=== PATIENT | female | born 1965 | race Caucasian/White ===

== ENCOUNTER 2023-06-16 14:43 | Emergency (ER) | payer MEDICAID, SELFPAY ==
[2023-06-16 14:44] VITALS: BP 175/66; PULSE 101; RESP 16; TEMP 36.8; O2SAT 96; BMI 27.4
[2023-06-16] MEDS: traMADol 50 MG Tablet PO (16:41)
--- NOTE | 2023-06-16 16:41 | EX.ED.GENINJ ---
HPI History of Present Illness Chief Complaint: Fall Narrative Narrative: 58-year-old female presenting with left shoulder pain and left rib pain. Patient states she was washing her dog in the tub and her arm was bracing herself and she slipped and felt a pop. She hit her ribs on the side of the tub and she states that her left shoulder hurts. She is not sure where the pop came from. She is having trouble moving her left shoulder secondary to pain over the deltoid and the trapezius. Denies hitting her head or injuring her neck. Patient states he is allergic to NSAIDs and has not tried Tylenol. She states that she is chronically on gabapentin which is not helping either. She has not tried ice or heat. [facility] Medical History Fibroid tumor Ovarian cyst Allergy/AdvReac Type Severity Reaction Status Date / Time adhesive Allergy Mild Hives Verified 06/16/23 14:47 amoxicillin Allergy Mild Hives Verified 06/16/23 14:47 coconut Allergy Mild Hives Verified 06/16/23 14:47 NSAIDS (Non-Steroidal Allergy Mild Hives Verified 06/16/23 14:47 Anti-Inflamma pineapple Allergy Mild Hives Verified 06/16/23 14:47 Surgical History H/O kyphoplasty History of appendectomy History of tonsillectomy Hx of cholecystectomy S/P cervical disc replacement Total knee replacement status Social History Smoking Status: Current every day smoker tobacco type: cigarettes ROS ROS ED Constitutional Constitutional ED: Denies chills or fever(s) Eyes Eyes: Denies change in vision ENT ENT ED: Denies rhinorrhea Cardiovascular Cardiovascular: Denies chest pain or palpitations Respiratory/Chest Respiratory/Chest: Denies cough or dyspnea Gastrointestinal Gastrointestinal: Denies abdominal pain or constipation Genitourinary Genitourinary ED: Denies dysuria or hematuria Musculoskeletal Musculoskeletal: Reports other Details: Pain in left shoulder and left rib Integumentary Denies abscess or Abrasions Neurologic Neurologic: Denies headache(s) Psychiatric Psychiatric: Denies anxiety or depression EXAM Physical Exam Const Vital Signs: 06/16/23 14:44 06/16/23 16:13 Temperature 98.2 F Temperature Source Temporal Pulse Rate 101 H Respiratory Rate 16 Respiratory Effort Normal Non-Labored Respiratory Depth Normal Respiratory Pattern Normal Blood Pressure 175/66 H Blood Pressure Mean 102 Pulse Ox 96 Oxygen Delivery Method Room Air Positive well nourished General Appearance ED: NAD HEENT atraumatic Eyes PERRL and EOMs intact bilaterally Chest Wall inspection of chest normal Chest Narrative: To palpation over left ribs laterally in the mid axillary line. No crepitance, deformity. Equal symmetric breath sounds chest wall rise. Resp normal respiratory effort and clear to auscultation bilaterally Auscultation: Negative for rales, rhonchi or wheezes Cardio regular rhythm Rate: regular rate Extremity Extremity Narrative: There is palpation of her left shoulder over the deltoid. There is also some tenderness into the left trapezius. The clavicle is nontender. Patient also experiences tenderness in the proximal bicep region. She is able to abduct and abduct the arm with use of her right arm not under the strength of her left arm.. No bony deformities. No obvious muscle deformities. Neuro oriented x3 and CN's II-XII intact bilaterally Sensorium / Orientation: alert Motor Exam: strength 5/5 throughout Psych mental status grossly normal Skin no rashes or lesions noted and no wounds MDM MDM MDM Narrative Medical decision making narrative: Presenting with left shoulder pain and left rib pain. Her ribs are not very tender, however her left shoulder she is very tender on palpation and has limited range of motion with suspicion for possible rotator cuff tear given her exam although this is limited because the patient does not want to precipitate in testing. She states it is too tender. She is medicated with tramadol which she states tolerated in the past. X-rays of the left shoulder and left ribs will be obtained. Left shoulder my interpretation is no acute fracture or subluxation. Radiology interprets this as calcific tendinitis. X-rays of the left ribs show 1/7 rib fracture on my interpretation the radiologist interprets this and agrees. No pneumothorax or infiltrate. Patient was given tramadol in the ED. I will give her prescription for [place] as she has tolerated this in the past. Follow-up with orthopedics and primary care. Impression: 1. Mechanical fall 2. Rotator cuff tear left shoulder 3. Left seventh rib fracture Radiography Diagnostic Testing: Clinical Impression(s) from Imaging Studies Ribs w/Chest X-Ray 06/16/23 16:55 IMPRESSION: RIBS: Fracture involving the anterior arch of the left seventh rib. CHEST: No acute cardiopulmonary disease. Electronically Signed: La Kumar MD at 17:22 EST , Shoulder X-Ray 06/16/23 16:55 IMPRESSION: Calcific tendinitis. No acute fracture or subluxation. Electronically Signed: La Kumar MD at 17:20 EST , Discharge Plan Triage Chief Complaint: Fall ED Provider: Matthew Linder Dx/Rx/DC Orders Primary Care Provider: Fang Matos Referrals: Fang Matos, [facility] [Primary Care Provider] -
--- NOTE | 2023-06-16 16:55 | RAD_ITS ---
STUDY: X-RAY - UNILATERAL RIBS ( LEFT ) WITH CHEST REASON FOR EXAM: Female, 58 years old. pain TECHNIQUE - RIBS: 4 view(s) of the ribs. TECHNIQUE - CHEST: Single PA view of the chest. COMPARISON: None. FINDINGS - RIBS: There is a fracture involving the anterior arch of the left seventh rib. FINDINGS - CHEST: The lungs are clear and expanded. There is no demonstrated pleural abnormality. Normal size heart. Normal mediastinum and elver. Normal visualized pulmonary arteries. There is mild atherosclerotic calcification of the aortic arch with tortuosity. Postoperative changes of the thoracic spine with anterior fusion of the lower cervical spine and right-sided posterior fusion throughout the mid thoracic spine. Normal visualized ribs, clavicles, and shoulders. There is no demonstrated abnormality of the visualized soft tissue structures of the upper abdomen. RAD/Ribs Uni Min 3V w/PA Chest IMPRESSION: RIBS: Fracture involving the anterior arch of the left seventh rib. CHEST: No acute cardiopulmonary disease. Electronically Signed: La Kumar MD at 17:22 [facility] ,
--- NOTE | 2023-06-16 16:55 | RAD_ITS ---
STUDY: X-RAY - LEFT SHOULDER REASON FOR EXAM: Female, 58 years old. shoulder pain TECHNIQUE: 3 view(s) of the shoulder. COMPARISON: None. FINDINGS: Normal glenohumeral articulation. Normal acromioclavicular joint. Normal acromion. Normal humeral head and visualized proximal humerus. There is periarticular soft tissue calcification consistent with a calcific tendinitis, measuring approximately 1.8 cm in maximum dimension. Normal visualized pulmonary apex. RAD/Shoulder min 2 Views IMPRESSION: Calcific tendinitis. No acute fracture or subluxation. Electronically Signed: La Kumar MD at 17:20 EST ,
== END 2023-06-16 18:49 | disposition home or self-care (01) ==
PROVIDERS: Emergency Provider Student in an Organized Health Care Education/Training Program; PCP Nurse Practitioner Family; Visit Provider Student in an Organized Health Care Education/Training Program
DX: S46.012A Strain of muscle(s) and tendon(s) of the rotator cuff of left shoulder, initial encounter (principal); S22.32XA Fracture of one rib, left side, initial encounter for closed fracture; F17.210 Nicotine dependence, cigarettes, uncomplicated; W19.XXXA Unspecified fall, initial encounter
CPT/HCPCS: 71101; 73030; 99282

== ENCOUNTER → 2023-07-04 | Outpatient (CLI) | payer MEDICAID, SELFPAY ==
--- OUTSIDE RECORDS SUMMARY | 2023-07-04 15:06 | XMS RPT_ITS | CCD ---
Author Name Unknown Address [address] [facility] [address] [place] [address] Organization [facility] Care Team Providers Care Ice Cream Dipper Name Role Phone Unavailable Primary Care Provider Unavailjosiah Barger [employer].Fang HU Primary Care Provider FANG BARGER Attending Unavailable FANG BARGER Primary Care Unavailable FANG BARGER Referring Unavailable FANG BARGER Attending Unavailable Allergies Allergy Classification Reported Allergen(s) Allergy Type Date of Onset Reaction(s) Facility (5 sources) Adhesive agent; Translations: [ADHESIVE] Drug Allergy 0 Other: See [facility] (5 sources) Amoxicillin; Translations: [AMOXICILLIN] Drug Allergy 0 [facility] (5 sources) celecoxib; Translations: [CELECOXIB] Drug Allergy 0 [facility] (5 sources) Ibuprofen; Translations: [IBUPROFEN] Drug Allergy 0 [facility] (5 sources) meloxicam; Translations: [MELOXICAM] Drug Allergy 0 [facility] (5 sources) rofecoxib; Translations: [ROFECOXIB] Drug Allergy 0 [facility] (5 sources) Sulfonamides (Antibiotic); Translations: [SULFA (SULFONAMIDE ANTIBIOTICS)] Drug Allergy 0 [facility] Medications Current Medications Medication Drug Class(es) Dates Sig (Normalized) Sig (Original) cephalexin 500 mg oral capsule (1 source) Cephalosporin Antibacterial Start: 03-02-2023 End: 03-07-2023 take 1 capsule by mouth three times daily cephALEXin (KEFLEX) 500 mg capsule Take 1 capsule by mouth three times daily for 5 days. 15 capsule 0 03/02/2023 03/07/2023 Active Completed/Discontinued Medications Medication Drug Class(es) Dates Sig (Normalized) Sig (Original) clopidogrel 75 mg oral tablet (5 sources) P2Y12 Platelet Inhibitor Start: 02-12-2023 End: 06-06-2023 take 1 tablet by mouth once daily clopidogrel (PLAVIX) 75 mg tablet Indications: PAD (peripheral artery disease) (HCC) Take 1 tablet by mouth once daily. 90 tablet 1 06/06/2023 Active Problems Problem Classification Problem Date Documented Da te Episodic/Chronic Disorders of lipid metabolism (2 sources) Mixed hyperlipidemia; Translations: [Mixed hyperlipidemia] Onset: 06-06-2023 06-06-2023 Chronic Essential hypertension (2 sources) Essential hypertension; Translations: [Essential (primary) hypertension] Onset: 06-06-2023 06-06-2023 Chronic Headache; including migraine (2 sources) Migraine without aura, not refractory ; Translations: [Migraine without aura, not intractable, without status migrainosus] Onset: 06-06-2023 06-06-2023 Chronic Miscellaneous mental health disorders (2 sources) Chronic insomnia; Translations: [Psychophysiologic insomnia] Onset: 06-06-2023 06-06-2023 Chronic Open wounds of extremities (1 source) Puncture wound of right foot; Translations: [Puncture wound without foreign body, right foot, initial encounter] 03-02-2023 Episodic Other fractures (1 source) Fracture of one rib, right side, initial encounter for closed fracture; Translations: [Closed fracture of one rib of right side, initial encounter] Onset: 06-23-2023 Episodic Other nervous system disorders (1 source) Chronic pain syndrome; Translations: [Chronic pain syndrome] 06-06-2023 Chronic Other nervous system disorders (1 source) Chronic pain syndrome; Translations: [Chronic pain syndrome] Onset: 06-23-2023 Chronic Other non-traumatic joint disorders (1 source) Pain in left shoulder; Translations: [Acute pain of left shoulder] Onset: 06-23-2023 Episodic Other screening for suspected conditions (not mental disorders or infectious disease) (3 sources) Patient encounter status; Translations: [Encounter for screening for diabetes mellitus] Onset: 06-06-2023 06-06-2023 Episodic Peripheral and visceral atherosclerosis (2 sources) Peripheral vascular disease, unspecified; Translations: [Peripheral vascular disease, unspecified] Onset: 06-06-2023 06-06-2023 Chronic Thyroid disorders (2 sources) Acquired hypothyroidism; Translations: [Hypothyroidism, unspecified] Onset: 06-06-2023 06-06-2023 Chronic Viral infection (1 source) Viral disease; Translations: [Viral infection, unspecified] 03-02-2023 Episodic Results Test Name Value Interpretation Reference Range Facil ity Vital Signs Date Time Vital Sign Value Performing Clinician [place] mazariegos 06-06-2023 16:03-0500 Body weight 68.04 kg Fang Barger [employer]ICE [employer] Work Phone: [facility] 06-06-2023 16:03-0500 Diastolic blood pressure 75 mm[Hg] Fang Barger [employer].APPRENTICE PLUMBER Work Phone: [facility] 06-06-2023 16:03-0500 Heart rate 80 /min Fang Barger [employer].APPRENTICE [employer]UMBER Work Phone: [facility] 06-06-2023 16:03-0500 Respiratory rate 14 /min Fang Barger [employer].APPRENTICE [employer]UMBER Work Phone: [facility] 06-06-2023 16:03-0500 Systolic blood pressure 116 mm[Hg] Fang Barger [employer].APPRENTICE PLUMBER Work Phone: [facility] 03-02-2023 14:05-0400 Body temperature 99.19 [degF] Raffi Huynh [employer].APPRENTICE PLUMBER Work Phone: [facility] 03-02-2023 14:05-0400 Body weight 67.86 kg Raffi Huynh [employer].APPRENTICE PLUMBER Work Phone: [facility] 03-02-2023 14:05-0400 Diastolic blood pressure 60 mm[Hg] Raffi Huynh [employer].APPRENTICE PLUMBER Work Phone: [facility] 03-02-2023 14:05-0400 Heart rate 82 /min Raffi Huynh [employer].APPRENTICE PLUMBER Work Phone: [facility] 03-02-2023 14:05-0400 Respiratory rate 21 /min Raffi Huynh [employer].APPRENTICE PLUMBER Work Phone: [facility] 03-02-2023 14:05-0400 SaO2% (BldA) [Mass fraction] 96 % Raffi Huynh [employer].APPRENTICE PLUMBER Work Phone: [facility] 03-02-2023 14:05-0400 Systolic blood pressure 124 mm[Hg] Raffi Huynh [employer].APPRENTICE PLUMBER Work Phone: [facility] Encounters Encounter Date Encounter Type Care Provider Facility Start: 06-29-2023 ambulatory Fang pollard [employer].APPRENTICE PLUMBER Work Phone: Internal Medicine [facility] Start: 06-23-2023 End: 06-24-2023 ambulatory FANG BARGER Facility:[facility] Start: 06-07-2023 Telephone encounter Fang keenan [employer].APPRENTICE [employer]BER Work Phone: [facility] Start: 06-06-2023 End: 06-07-2023 ambulatory FANG BARGER Facility:[facility] Start: 06-06-2023 End: 06-06-2023 Patient encounter procedure Fang Barger [employer].APPRENTICE [employer]UMBER Work Phone: [facility] Procedures Date Procedure Procedure Detail Performing Clinician Start: 06-06-2023 Lipid 1996 panel - S leena or Plasma Fang Barger [employer].APPRENTICE [employer]UMBER Work Phone: Plan of Treatment Date Care Activity Detail Author Start: 03-02-2033 Urine microalbumin profile [facility] Start: 06-06-2028 Lipid panel Lipid Screening [facility] Start: 06-06-2026 Diabetes Screening Diabetes Screenin g [facility] Start: 06-06-2024 Covid-19 Vaccine (#1) Covid-19 Vacci ne (#1) [facility] Immunizations Immunization Date Immunization Notes Care Provider Fa rosanne 03-02-2023 tetanus toxoid, redu mesha diphtheria toxoid, and acellular pertussis vaccine, adsorbed Raffi Huynh [employer].APPRENTICE [employer]UMBER Work Phone: [facility] Payers Date Payer Category Payer Medicaid [employer] [id number] 2023-Present [phone] [address] [place] [address] Medicaid [id number] 2023 Medicaid [id number] Social History Date Type Detail [facility] unknown [facility] Work Phone: Start: 1965 Sex Assigned At Not on file [facility] Start: 03-02-2023 End: 06-05-2023 Gender identity Not on file [facility] Start: 03-02-2023 [facility] History of tobacco use Cigarette Smoker [facility] History of tobacco use Passive smoker [facility] Start: 03-02-2023 Tobacco use and exposure Smokeless tobacco non-user [facility] Start: 03-02-2023 End: 06-05-2023 History of Social function [facility] National Score (1-10 0), lower number is lower risk 60 [facility] Has the [employer], or [employer] threatened to shut off services in your home in past 12Mo No [facility] Are you now , , , , never or living with a partner? [facility] How often do you hav e 6 or more drinks on 1 occasion? Never [facility] The food that (I/we) bought just didn't last, and (I/we) didn't have money to get more. DK or Refused [facility] Clinical Notes 01-03-2023 to 06-29-2023 Fang Barger, [employer].APPRENTICE PLUMBER - 06/06/2023 4:14 PM Raffi Hardin APRN.APPRENTICE PLUMBER - 03/02/2023 2:11 PM EDTTelephone Encounter - Kenneth Martinez PA-C - 01/03/2023 6:07 PM EDT Note Date & Type Note Facility 06-29-2023 Note Patient Outreach (IN [facility]) CALLI ABBOTT ([id number]) 1965 F Date Time Provider Department 06/29/23 FANG BARGER During your visit today, we recorded the following information about you: Allergies As of Date: 06/29/2023 Noted Allergy Reaction ADHESIVE 05/14/2010 14 - Other: See Comments Comments: BLISTERS AMOXICILLIN 05/14/2010 4 - Hives CELECOXIB 05/14/2010 4 - Hives IBUPROFEN 05/14/2010 4 - Hives MELOXICAM 05/14/2010 4 - Hives ROFECOXIB 05/14/2010 4 - Hives SULFA (SULFONAMIDE ANTIBIOTICS) 05/14/2010 4 - Hives Date Reviewed: 06/23/2023 Reviewed by: Renata Stevenson Cma - Fully Assessed Visit Diagnosis:Encounter for screening mammogram for breast cancer [Z12.31] Order(s):[facility] SCREEN[facility] [[id number]] Order #: [id number] FUTURE Prescriptions as of 07/04/2023 - propranolol (INDERAL) 20 mg tablet Take 1 tablet by mouth three times a day. - traZODone (DESYREL) 100 mg tablet Take 1 tablet by mouth daily at bedtime. - SUMAtriptan (IMITREX) 25 mg tablet Take 1 tablet (25 mg) by mouth as needed for migraine headache (see administration instructions). - losartan (COZAAR) 50 mg tablet Take 1 tablet by mouth once daily. - levothyroxine (SYNTHROID) 125 mcg tablet Take 1 tablet by mouth once daily. - hydrOXYzine HCl (ATARAX) 25 mg tablet Take 1 tablet by mouth three times a day as needed. - gabapentin (NEURONTIN) 800 mg tablet Take 1 tablet by mouth three times a day for 90 days. - ezetimibe (ZETIA) 10 mg tablet Take 1 tablet by mouth once daily. - DULoxetine (CYMBALTA) 30 mg capsule Take 1 capsule by mouth two times a day. - clopidogrel (PLAVIX) 75 mg tablet Take 1 tablet by mouth once daily. Problem List As Of Date: 06/29/2023 (None) Encounter Status:Closed by EPIC, PRODUSER on 07/04/23 [facility] 06-23-2023 Note HNO ID: [id number] Author: Fang Barger APRN.APPRENTICE PLUMBER Service: ? Author Type: Nurse Practitioner Type: Progress Notes Filed: 06/23/2023 1:17 PM Note Text: Chief Complaint Patient presents with: ER F/U HPI Calli Abbott is a 58 year old female who presents here today for Above Complaints.. Patient presents for ER follow up. Patient was seen in ER 06/16 following a fall where she fractured her rib and injured her shoulder. Patient was prescribed norco at that time and given 12 tabs. Past medical history, appointments, medications, allergies reviewed. Previous Medical History No past medical history on file. Previous Surgical History No past surgical history on file. Family History No family history on file. Patient Allergies ALLERGIES Allergen Reactions Adhesive Other: See Comments BLISTERS Amoxicillin Hives Celecoxib Hives Ibuprofen Hives Meloxicam Hives Rofecoxib Hives Sulfa (Sulfonamide * Hives Current Medications Current Outpatient Medications on File Prior to Visit Medication Sig propranolol (INDERAL) 20 mg tablet Take 1 tablet by mouth three times a day. traZODone (DESYREL) 100 mg tablet Take 1 tablet by mouth daily at bedtime. SUMAtriptan (IMITREX) 25 mg tablet Take 1 tablet (25 mg) by mouth as needed for migraine headache (see administration instructions). losartan (COZAAR) 50 mg tablet Take 1 tablet by mouth once daily. levothyroxine (SYNTHROID) 125 mcg tablet Take 1 tablet by mouth once daily. hydrOXYzine HCl (ATARAX) 25 mg tablet Take 1 tablet by mouth three times a day as needed. gabapentin (NEURONTIN) 800 mg tablet Take 1 tablet by mouth three times a day for 90 days. ezetimibe (ZETIA) 10 mg tablet Take 1 tablet by mouth once daily. DULoxetine (CYMBALTA) 30 mg capsule Take 1 capsule by mouth two times a day. clopidogrel (PLAVIX) 75 mg tablet Take 1 tablet by mouth once daily. No current facility-administered medications on file prior to visit. Social History Social History Tobacco Use Smoking status: Every Day Types: Cigarettes Passive exposure: Current Smokeless tobacco: Never Review of Symptoms REVIEW OF SYSTEMS SEE HPI EXAM: BP 150/80 Pulse 78 Resp 14 Wt 68.5 kg (151 lb) General Appearance: Well appearing, alert, in no acute distress, well-hydrated, well nourished.. Lungs: Lungs clear to auscultation. No wheezing, rhonchi, rales.. Heart: RRR without murmur, gallop, or rubs. No ectopy. Extremities: Positive findings: joint location: on left shoulder painful movement, loss of ROM, stiffness, and injury. Health Maintenance List Hepatitis B Vaccine(1 of 3 - 3-dose series) Never done Pneumococcal Vaccine(1 of 2 - PCV) Never done Hepatitis C Screening Never done HIV Screening Never done Pap Testing Never done HPV Testing Never done Mammogram Screening Never done Colorectal Cancer Screening Never done Shingrix Vaccine(1 of 2) Never done Depression Assessment Never done Influenza Vaccine(1) Never done Covid-19 Vaccine(1) due on 06/06/2024 Diabetes Screening due on 06/06/2026 Lipid Screening due on 06/06/2028 DTaP,Tdap,Td Vaccine(2 - Td or Tdap) due on 03/02/2033 ASSESSMENT/PLAN: 1. Closed fracture of one rib of right side, initial encounter - ICD9: 807.01, ICD10: S22.31XA (primary diagnosis) - HYDROCODONE 5 MG-ACETAMINOPHEN 325 MG TABLET 2. Chronic pain syndrome - ICD9: 338.4, ICD10: G89.4 - CONSULT TO PAIN MGT 3. Acute pain of left shoulder - ICD9: 719.41, ICD10: M25.512 -Follow up with ortho as scheduled. Fang Barger APRN.APPRENTICE PLUMBER [facility] 06-06-2023 Note HNO ID: [id number] Author: Fang Barger APRN.AP[employer]ENTICE [employer]UMBER Service: ? Author Type: Nurse Practitioner Type: Progress Notes Filed: 06/06/2023 4:25 PM Note Text: Chief Complaint Patient presents with: Follow Up: Medication refills HPI Calli Abbott is a 58 year old female who presents here today for Above Complaints.. Patient presents for medication refills. Patient has establish care visit in June but is almost out of her medications. Past medical history, appointments, medications, allergies reviewed. Previous Medical History No past medical history on file. Previous Surgical History No past surgical history on file. Family History No family history on file. Patient Allergies ALLERGIES Allergen Reactions Adhesive Other: See Comments BLISTERS Amoxicillin Hives Celecoxib Hives Ibuprofen Hives Meloxicam Hives Rofecoxib Hives Sulfa (Sulfonamide * Hives Current Medications Current Outpatient Medications on File Prior to Visit Medication Sig clopidogrel (PLAVIX) 75 mg tablet DULoxetine (CYMBALTA) 30 mg capsule ezetimibe (ZETIA) 10 mg tablet gabapentin (NEURONTIN) 800 mg tablet hydrOXYzine HCl (ATARAX) 25 mg tablet levothyroxine (SYNTHROID) 125 mcg tablet losartan (COZAAR) 50 mg tablet SUMAtriptan (IMITREX) 25 mg tablet traZODone (DESYREL) 100 mg tablet propranolol (INDERAL) 20 mg tablet Take 20 mg by mouth three times daily. No current facility-administered medications on file prior to visit. Social History Social History Tobacco Use Smoking status: Every Day Types: Cigarettes Passive exposure: Current Smokeless tobacco: Never Review of Symptoms REVIEW OF SYSTEMS SEE HPI EXAM: BP 116/75 Pulse 80 Resp 14 Wt 68 kg (150 lb) General Appearance: Well appearing, alert, in no acute distress, well-hydrated, well nourished.. Lungs: Lungs clear to auscultation. No wheezing, rhonchi, rales.. Heart: RRR without murmur, gallop, or rubs. No ectopy. Health Maintenance List Hepatitis B Vaccine(1 of 3 - 3-dose series) Never done Pneumococcal Vaccine(1 - PCV) Never done Hepatitis C Screening Never done HIV Screening Never done Pap Testing Never done HPV Testing Never done Mammogram Screening Never done Lipid Screening Never done Diabetes Screening Never done Colorectal Cancer Screening Never done Shingrix Vaccine(1 of 2) Never done Depression Assessment Never done Influenza Vaccine(1) Never done Covid-19 Vaccine(1) due on 06/06/2024 DTaP,Tdap,Td Vaccine(2 - Td or Tdap) due on 03/02/2033 ASSESSMENT/PLAN: 1. Migraine without aura and without status migrainosus, not intractable - ICD9: 346.10, ICD10: G43.009 (primary diagnosis) - PROPRANOLOL 20 MG TABLET - SUMATRIPTAN 25 MG TABLET 2. Chronic pain syndrome - ICD9: 338.4, ICD10: G89.4 - GABAPENTIN 800 MG TABLET - DULOXETINE 30 MG CAPSULE,DELAYED RELEASE 3. Hyperlipidemia, mixed - ICD9: 272.2, ICD10: E78.2 - Control undetermined, due for labs - EZETIMIBE 10 MG TABLET - LIPID PANEL, NONFASTING 4. Chronic insomnia - ICD9: 780.52, ICD10: F51.04 - TRAZODONE 100 MG TABLET - HYDROXYZINE HCL 25 MG TABLET 5. Hypothyroidism, acquired - ICD9: 244.9, ICD10: E03.9 - Instructed patient on importance of taking on an empty stomach either first thing in the morning or at bedtime. - check TSH today - LEVOTHYROXINE 125 MCG TABLET 6. PAD (peripheral artery disease) (HCC) - ICD9: 443.9, ICD10: I73.9 - CLOPIDOGREL 75 MG TABLET 7. Hypertension, essential - ICD9: 401.9, ICD10: I10 - Controlled - Continue current medications - Recommend home blood pressure monitoring, to bring results to next visit - Encouraged sodium restriction, DASH or Mediterranean diet - Recommend regular aerobic exercise - LOSARTAN 50 MG TABLET - CBC + DIFF - COMP METABOLIC PANEL 8. Screening for diabetes mellitus - ICD9: V77.1, ICD10: Z13.1 - HGB A1C Fang Barger, VERONIKA.[facility] 06-06-2023 History of Presen t illness Narrative Chief Complaint Patient presents with: Follow Up: Medication refills HPI Calli Abbott is a 58 year old female who presents here today for Above Complaints.. Patient presents for medication refills. Patient has establish care visit in June but is almost out of her medications. Past medical history, appointments, medications, allergies reviewed. Previous Medical History No past medical history on file. Previous Surgical History No past surgical history on file. Family History No family history on file. Patient Allergies ALLERGIES Allergen Reactions Adhesive Other: See Comments BLISTERS Amoxicillin Hives Celecoxib Hives Ibuprofen Hives Meloxicam Hives Rofecoxib Hives Sulfa (Sulfonamide * Hives Current Medications Current Outpatient Medications on File Prior to Visit Medication Sig clopidogrel (PLAVIX) 75 mg tablet DULoxetine (CYMBALTA) 30 mg capsule ezetimibe (ZETIA) 10 mg tablet gabapentin (NEURONTIN) 800 mg tablet hydrOXYzine HCl (ATARAX) 25 mg tablet levothyroxine (SYNTHROID) 125 mcg tablet losartan (COZAAR) 50 mg tablet SUMAtriptan (IMITREX) 25 mg tablet traZODone (DESYREL) 100 mg tablet propranolol (INDERAL) 20 mg tablet Take 20 mg by mouth three times daily. No current facility-administered medications on file prior to visit. Social History Social History Tobacco Use Smoking status: Every Day Types: Cigarettes Passive exposure: Current Smokeless tobacco: Never Review of Symptoms REVIEW OF SYSTEMS SEE HPI EXAM: BP 116/75 Pulse 80 Resp 14 Wt 68 kg (150 lb) General Appearance: Well appearing, alert, in no acute distress, well-hydrated, well nourished.. Lungs: Lungs clear to auscultation. No wheezing, rhonchi, rales.. Heart: RRR without murmur, gallop, or rubs. No ectopy. Health Maintenance List Hepatitis B Vaccine(1 of 3 - 3-dose series) Never done Pneumococcal Vaccine(1 - PCV) Never done Hepatitis C Screening Never done HIV Screening Never done Pap Testing Never done HPV Testing Never done Mammogram Screening Never done Lipid Screening Never done Diabetes Screening Never done Colorectal Cancer Screening Never done Shingrix Vaccine(1 of 2) Never done Depression Assessment Never done Influenza Vaccine(1) Never done Covid-19 Vaccine(1) due on 06/06/2024 DTaP,Tdap,Td Vaccine(2 - Td or Tdap) due on 03/02/2033 ASSESSMENT/PLAN: 1. Migraine without aura and without status migrainosus, not intractable - ICD9: 346.10, ICD10: G43.009 (primary diagnosis) - PROPRANOLOL 20 MG TABLET - SUMATRIPTAN 25 MG TABLET 2. Chronic pain syndrome - ICD9: 338.4, ICD10: G89.4 - GABAPENTIN 800 MG TABLET - DULOXETINE 30 MG CAPSULE,DELAYED RELEASE 3. Hyperlipidemia, mixed - ICD9: 272.2, ICD10: E78.2 - Control undetermined, due for labs - EZETIMIBE 10 MG TABLET - LIPID PANEL, NONFASTING 4. Chronic insomnia - ICD9: 780.52, ICD10: F51.04 - TRAZODONE 100 MG TABLET - HYDROXYZINE HCL 25 MG TABLET 5. Hypothyroidism, acquired - ICD9: 244.9, ICD10: E03.9 - Instructed patient on importance of taking on an empty stomach either first thing in the morning or at bedtime. - check TSH today - LEVOTHYROXINE 125 MCG TABLET 6. PAD (peripheral artery disease) (HCC) - ICD9: 443.9, ICD10: I73.9\ - CLOPIDOGREL 75 MG TABLET 7. Hypertension, essential - ICD9: 401.9, ICD10: I10 - Controlled - Continue current medications - Recommend home blood pressure monitoring, to bring results to next visit - Encouraged sodium restriction, DASH or Mediterranean diet - Recommend regular aerobic exercise - LOSARTAN 50 MG TABLET - CBC + DIFF - COMP METABOLIC PANEL 8. Screening for diabetes mellitus - ICD9: V77.1, ICD10: Z13.1 - HGB A1C Fang Barger APRN.APPRENTICE PLUMBER documented in this encounter [facility] 03-02-2023 Note HNO ID: [id number] Author: Raffi Huynh APRN.APPRENTICE PLUMBER Service: ? Author Type: Nurse Practitioner Type: Progress Notes Filed: 03/02/2023 2:45 PM Note Text: Subjective HPI Nontoxic-appearing female presents urgent care chief plaint puncture wound right-sided foot. Duration of symptoms 4 days. Associated symptoms caught the side of her heel on a screw. Presents today for evaluation. States area is slightly sore. Did wash wound. Additionally she has URI-like symptoms. States she was around her grandkids who have colds from recently starting back to school. States overall feels okay. Denies any fevers productive cough chest pain shortness of breath pleuritic pain hemoptysis nausea vomiting abdominal pain change in bowel or bladder habits. Past medical history prescription medication use allergies reviewed. .Patient presents with: Wound Check: Right foot stepped on brandon screw x 4 days History reviewed. No pertinent past medical history. History reviewed. No pertinent surgical history. ALLERGIES Adhesive, Amoxicillin, Celecoxib, Ibuprofen, Meloxicam, Rofecoxib, and Sulfa (Sulfonamide Antibiotics) MEDICATIONS clopidogrel (PLAVIX) 75 mg tablet DULoxetine (CYMBALTA) 30 mg capsule ezetimibe (ZETIA) 10 mg tablet gabapentin (NEURONTIN) 800 mg tablet hydrOXYzine HCl (ATARAX) 25 mg tablet levothyroxine (SYNTHROID) 125 mcg tablet losartan (COZAAR) 50 mg tablet SUMAtriptan (IMITREX) 25 mg tablet traZODone (DESYREL) 100 mg tablet propranolol (INDERAL) 20 mg tablet Take 20 mg by mouth three times daily. History reviewed. No pertinent family history. Social History Tobacco Use Smoking status: Every Day Types: Cigarettes Passive exposure: Current Smokeless tobacco: Never BP 124/60 Pulse 82 Temp 37.3 ?C (99.2 ?F) Resp 21 Wt 67.9 kg (149 lb 9.6 oz) SpO2 96% Review of Systems Constitutional: Negative for chills, fever and malaise/fatigue. HENT: Positive for congestion and sore throat. Negative for ear discharge, ear pain and sinus pain. Eyes: Negative for blurred vision, pain, discharge and redness. Respiratory: Positive for cough. Negative for hemoptysis, sputum production, shortness of breath, wheezing and stridor. Cardiovascular: Negative for chest pain. Gastrointestinal: Negative for abdominal pain, diarrhea, nausea and vomiting. Musculoskeletal: Negative for myalgias. Skin: Negative for itching and rash. Neurological: Negative for dizziness and headaches. Objective Physical Exam Constitutional: General: She is not in acute distress. Appearance: She is not toxic-appearing. HENT: Head: Normocephalic. Nose: Congestion present. Mouth/Throat: Mouth: Mucous membranes are moist. Pharynx: Oropharynx is clear. No oropharyngeal exudate or posterior oropharyngeal erythema. Eyes: Pupils: Pupils are equal, round, and reactive to light. Cardiovascular: Rate and Rhythm: Normal rate. Pulmonary: Effort: Pulmonary effort is normal. No respiratory distress. Breath sounds: No stridor. No rhonchi or rales. Musculoskeletal: Cervical back: Normal range of motion. Feet: Feet: Comments: Break in skin noted highlighted area. No surrounding erythema edema. No remote redness. No drainage. No fluctuance. Skin: General: Skin is warm and dry. Neurological: General: No focal deficit present. Mental Status: She is alert. ASSESSMENT/PLAN: 1. Viral illness - ICD9: 079.99, ICD10: B34.9 (primary diagnosis) 2. Puncture wound of right foot, initial encounter - ICD9: 892.0, ICD10: S91.331A Treat viral illness conservatively at this time. No evidence of bacterial infection. Additionally patient diagnosed with puncture wound. Screw did not penetrate through any socks or shoes. We will treat with Keflex. Has tolerated this antibiotic before. Follow-up 2 to 3 days wound reevaluation. Red flags prompt elevation discussed. Tetanus shot updated. Patient was educated on supportive therapies. Patient will follow up with primary care provider as needed. Patient was instructed to immediately proceed to emergency room for any new, worsening, or symptoms lasting longer than anticipated. The patient's clinical presentation is otherwise unremarkable at this time. Based on exam and clinical finding, the patient is stable for discharge. Plan of care was discussed with patient. Patient verbalizes understanding and agrees to plan of care. This note was generated using grabHalo software. It may contain errors in wording, punctuation, or spelling. Raffi Huynh APRN.[facility] 03-02-2023 History of Presen t illness Narrative Images from the original note were not included. Subjective HPI Nontoxic-appearing female presents urgent care chief plaint puncture wound right-sided foot. Duration of symptoms 4 days. Associated symptoms caught the side of her heel on a screw. Presents today for evaluation. States area is slightly sore. Did wash wound. Additionally she has URI-like symptoms. States she was around her grandkids who have colds from recently starting back to school. States overall feels okay. Denies any fevers productive cough chest pain shortness of breath pleuritic pain hemoptysis nausea vomiting abdominal pain change in bowel or bladder habits. Past medical history prescription medication use allergies reviewed. .Patient presents with: Wound Check: Right foot stepped on brandon screw x 4 days History reviewed. No pertinent past medical history. History reviewed. No pertinent surgical history. ALLERGIES Adhesive, Amoxicillin, Celecoxib, Ibuprofen, Meloxicam, Rofecoxib, and Sulfa (Sulfonamide Antibiotics) MEDICATIONS clopidogrel (PLAVIX) 75 mg tablet DULoxetine (CYMBALTA) 30 mg capsule ezetimibe (ZETIA) 10 mg tablet gabapentin (NEURONTIN) 800 mg tablet hydrOXYzine HCl (ATARAX) 25 mg tablet levothyroxine (SYNTHROID) 125 mcg tablet losartan (COZAAR) 50 mg tablet SUMAtriptan (IMITREX) 25 mg tablet traZODone (DESYREL) 100 mg tablet propranolol (INDERAL) 20 mg tablet Take 20 mg by mouth three times daily. History reviewed. No pertinent family history. Social History Tobacco Use Smoking status: Every Day Types: Cigarettes Passive exposure: Current Smokeless tobacco: Never BP 124/60 Pulse 82 Temp 37.3 C (99.2 F) Resp 21 Wt 67.9 kg (149 lb 9.6 oz) SpO2 96% Review of Systems Constitutional: Negative for chills, fever and malaise/fatigue. HENT: Positive for congestion and sore throat. Negative for ear discharge, ear pain and sinus pain. Eyes: Negative for blurred vision, pain, discharge and redness. Respiratory: Positive for cough. Negative for hemoptysis, sputum production, shortness of breath, wheezing and stridor. Cardiovascular: Negative for chest pain. Gastrointestinal: Negative for abdominal pain, diarrhea, nausea and vomiting. Musculoskeletal: Negative for myalgias. Skin: Negative for itching and rash. Neurological: Negative for dizziness and headaches. Objective Physical Exam Constitutional: General: She is not in acute distress. Appearance: She is not toxic-appearing. HENT: Head: Normocephalic. Nose: Congestion present. Mouth/Throat: Mouth: Mucous membranes are moist. Pharynx: Oropharynx is clear. No oropharyngeal exudate or posterior oropharyngeal erythema. Eyes: Pupils: Pupils are equal, round, and reactive to light. Cardiovascular: Rate and Rhythm: Normal rate. Pulmonary: Effort: Pulmonary effort is normal. No respiratory distress. Breath sounds: No stridor. No rhonchi or rales. Musculoskeletal: Cervical back: Normal range of motion. Feet: Feet: Comments: Break in skin noted highlighted area. No surrounding erythema edema. No remote redness. No drainage. No fluctuance. Skin: General: Skin is warm and dry. Neurological: General: No focal deficit present. Mental Status: She is alert. ASSESSMENT/PLAN: 1. Viral illness - ICD9: 079.99, ICD10: B34.9 (primary diagnosis) 2. Puncture wound of right foot, initial encounter - ICD9: 892.0, ICD10: S91.331A Treat viral illness conservatively at this time. No evidence of bacterial infection. Additionally patient diagnosed with puncture wound. Screw did not penetrate through any socks or shoes. We will treat with Keflex. Has tolerated this antibiotic before. Follow-up 2 to 3 days wound reevaluation. Red flags prompt elevation discussed. Tetanus shot updated. Patient was educated on supportive therapies. Patient will follow up with primary care provider as needed. Patient was instructed to immediately proceed to emergency room for any new, worsening, or symptoms lasting longer than anticipated. The patient's clinical presentation is otherwise unremarkable at this time. Based on exam and clinical finding, the patient is stable for discharge. Plan of care was discussed with patient. Patient verbalizes understanding and agrees to plan of care. This note was generated using grabHalo software. It may contain errors in wording, punctuation, or spelling. Raffi Huynh APRN.[facility] documented in this encounter [facility] 01-03-2023 Miscellaneous Notes Formattin g of this note might be different from the original. My apologies but at this time I am anticipating penitentiary in the next 6-9 months and am no longer accepting new patients. Thanks, João Martinez PA-C Are you agreeable to accepting pt? Keisha Champion Ma Pts son called to get pt established with João. Pt son, Cristobal Araujo ( ) is a pt and indicates he has talked to João in previous visits. documented in this encounter [facility] Migraine without aura and without status migrainosus, not intractable- Primary Migraine without aura, without mention of intractable migraine without mention of status migrainosus Chronic pain syndrome Hyperlipidemia, mixed Mixed hyperlipidemia Chronic insomnia Insomnia, unspecified Hypothyroidism, acquired Unspecified hypothyroidism PAD (peripheral artery disease) (HCC) Peripheral vascular disease, unspecified Hypertension, essential Unspecified essential hypertension Screening for diabetes mellitus [facility] Encounter for screening mammogram for breast cancer [facility] Diagnostic Procedure Only (Routine) - Pending Review Specialty Diagnoses / Procedures Referred By Nicole t Referred To Contact [facility] Diagnoses Encounter for screening mammogram for breast cancer Procedures BEVERLY SCREENING SCREENING MAMMOGRAPHY BI 2-VIEW BREAST INC CAD Fang Barger APRN.CNP [address] [place] [address] [facility] [address] [place] [address] Referral ID Status Reason Start Date Expiration Date Visits Requested Visits Authorized [id number] Pending Review Auto-Generat ed Referral 06/29/2023 07/28/2024 1 1 [facility] Summary Purpose Family History No Family History Records Found Advance Directives No Advanced Directives Records Found Additional Source Comments Source Comments (unrecognize d section and content) In the event this informatio n is protected by the Federal Confidentiality of Alcohol and Drug Abuse Patient Records regulations: The Federal rules restrict any use of the information to criminally investigate or prosecute any alcohol or drug abuse patient.[facility] the event this information is protected by the Federal Confidentiality of Alcohol and Drug Abuse Patient Records regulations: The Federal rules restrict any use of the information to criminally investigate or prosecute any alcohol or drug abuse patient.[facility] the event this information is protected by the Federal Confidentiality of Alcohol and Drug Abuse Patient Records regulations: The Federal rules restrict any use of the information to criminally investigate or prosecute any alcohol or drug abuse patient.[facility] the event this information is protected by the Federal Confidentiality of Alcohol and Drug Abuse Patient Records regulations: The Federal rules restrict any use of the information to criminally investigate or prosecute any alcohol or drug abuse patient.[facility] the event this information is protected by the Federal Confidentiality of Alcohol and Drug Abuse Patient Records regulations: The Federal rules restrict any use of the information to criminally investigate or prosecute any alcohol or drug abuse patient.[facility] Reason for Visit (unrecogniz ed section and content) Reason Comments Wound Check Right foot stepped o n brandon screw x 4 days Reason Comments Follow Up Medication refills Care Teams (unrecognized sec tion and content) INFORMATION SOURCE (unrecogn ized section and content) FOR RECORDS PERTAINING TO PATIENTS WHO ARE OR HAVE BEEN ENROLLED IN A CHEMICAL DEPENDENCY/SUBSTANCEABUSE PROGRAM, SOME INFORMATION MAY BE OMITTED. This clinical summary was aggregated from multiple sources. Caution should be exercised in using it in the provision of clinical care. This summary normalizes information from multiple sources, and as a consequence, information in this document may materially change the coding, format and clinical context of patient data. In addition, data may be omitted in some cases. CLINICAL DECISIONS SHOULD BE BASED ON THE PRIMARY CLINICAL RECORDS. [facility] [employer] [facility]. provides no warranty or guarantee of the accuracy or completeness of information in this document.
[2023-07-04 15:24] LABS: Amphetamine Urine VISTA NEGATIVE (<1000 ng/mL); Barbiturate Urine VISTA NEGATIVE (< 200 ng/mL); Benzodiazepine Urine VISTA NEGATIVE (< 200 ng/mL); Cocaine Urine VISTA NEGATIVE (< 300 ng/mL); Ecstacy Urine VISTA POSITIVE (< 500 ng/mL); Methadone Urine VISTA NEGATIVE (< 300 ng/mL); PCP Urine VISTA NEGATIVE (< 25 ng/mL); THC Urine VISTA NEGATIVE (< 50 ng/mL); Vista UDS pH Range 5
== END | disposition home or self-care (01) ==
LOC: LAB 13:53
PROVIDERS: PCP Nurse Practitioner Family; Referring Provider Anesthesiology; Visit Provider Anesthesiology
DX: F11.20 Opioid dependence, uncomplicated (principal)
CPT/HCPCS: 80307

== ENCOUNTER → 2023-07-29 | Outpatient (CLI) | payer MEDICAID, SELFPAY ==
--- NOTE | 2023-07-29 13:33 | MRI_ITS ---
STUDY: MRI LEFT SHOULDER REASON FOR EXAM: Female, 58 years old. Pain in left shoulder, status post fall 8 weeks ago. TECHNIQUE: Standardized fat and water weighted pulse sequences were obtained in all 3 orthogonal planes. COMPARISON: Left shoulder radiographs dated 06/16/2023. FINDINGS: There is mild supraspinatus and infraspinatus tendinosis without a full-thickness tear. Normal subscapularis tendon. Normal teres minor tendon. Normal supraspinatus muscle. Normal infraspinatus muscle. Normal subscapularis muscle. Normal teres minor muscle. Normal glenohumeral articulation. There is mild enthesopathic subcortical cyst formation of the greater tuberosity of the humeral head. Normal biceps labral complex. Normal intracapsular long biceps tendon. Normal labrum. Normal capsulo-ligamentous complex. Normal rotator interval. There is mild hypertrophic acromioclavicular arthrosis. There is a Type II morphology (curved), with a neutral orientation. There is trace subacromial-subdeltoid bursal fluid. Normal visualized coracohumeral and coracoacromial ligaments. Normal quadrilateral space. Normal axillary space. Normal deltoid muscle. Normal trapezius muscle. MRI/Upper Ext Joint Only(Routine) IMPRESSION: Mild supraspinatus and infraspinatus tendinosis without a full-thickness rotator cuff tear. Mild hypertrophic acromioclavicular arthrosis. Minimal subacromial-subdeltoid bursitis. Electronically Signed: Pastor Rea MD at 15:48 EST ,
== END | disposition home or self-care (01) ==
LOC: MRI 13:30
PROVIDERS: PCP Nurse Practitioner Family; Referring Provider Anesthesiology; Visit Provider Anesthesiology
DX: M25.519 Pain in unspecified shoulder (principal)
CPT/HCPCS: 73221

== ENCOUNTER → 2024-11-06 | Outpatient (CLI) | payer MEDICAID, SELFPAY ==
--- NOTE | 2024-11-06 16:00 | RAD_ITS ---
PROCEDURE: HIP, UNI W/ PELVIS 2-3 VIEWS 11/06/2024 REASON FOR EXAM: HIP PAIN TECHNIQUE: AP pelvis and two-view right hip, 3 total images COMPARISON: None available FINDINGS: The pelvis appears within limits. Suggestion of lower lumbar facet degenerative change. Vascular calcifications with bilateral inguinal small surgical clips noted. The hip joint spaces appear within limits. Mild spurring osteoarthrosis right hip. No fracture or dislocation. Enthesopathic change adjacent to the left greater trochanter. RAD/HIP, UNI W/ Pelvis 2-3 Views IMPRESSION: Mild spurring osteoarthrosis right hip. Reading Location: [id number]
--- NOTE | 2024-11-06 16:00 | RAD_ITS ---
PROCEDURE: LUMBAR SPINE 2 OR 3 VIEWS 11/06/2024 REASON FOR EXAM: LUMBAR SPONDYLOSIS TECHNIQUE: 3 view(s) of the lumbar spine AP, lateral and coned-down L5-S1 view COMPARISON: None available FINDINGS: 5 [id number] lumbar vertebral body types identified. No fracture or malalignment. L4-5 moderate disc space narrowing with note of vacuum effect and mild endplate spurring anteriorly. Aortoiliac atherosclerotic calcification. RAD/Lumbar Spine 2 or 3 Views IMPRESSION: L4-5 spondylosis/discogenic change as above. Reading Location: [id number]
== END | disposition home or self-care (01) ==
LOC: RAD 15:50
PROVIDERS: PCP Nurse Practitioner Family; Referring Provider Anesthesiology; Visit Provider Anesthesiology
DX: M43.06 Spondylolysis, lumbar region (principal); M25.551 Pain in right hip
CPT/HCPCS: 72100; 73502

== ENCOUNTER → 2024-12-24 | Outpatient (CLI) | payer MEDICAID, SELFPAY ==
--- NOTE | 2024-12-24 12:00 | RAD_ITS ---
EXAM: XR Right Ribs and AP Chest, 3 or More Views CLINICAL INDICATION: RIB FRACTURE TECHNIQUE: Frontal and oblique views of the right ribs and frontal view of the chest. COMPARISON: No relevant prior studies available. FINDINGS: LUNGS AND PLEURAL SPACES: Unremarkable. No consolidation. No pneumothorax. HEART: Unremarkable. No cardiomegaly. MEDIASTINUM: Unremarkable. Normal mediastinal contour. BONES/JOINTS: Unremarkable. No displaced rib fractures. RAD/Ribs Uni Min 3V w/PA Chest IMPRESSION: No displaced rib fractures. Reading Location: [facility]
== END | disposition home or self-care (01) ==
LOC: RAD 11:41
PROVIDERS: PCP Nurse Practitioner Family; Referring Provider Anesthesiology; Visit Provider Anesthesiology
DX: S22.31XA Fracture of one rib, right side, initial encounter for closed fracture (principal)
CPT/HCPCS: 71101

== ENCOUNTER → 2025-02-12 | Outpatient (CLI) | payer MEDICAID, SELFPAY ==
--- NOTE | 2025-02-12 16:25 | MRI_ITS ---
PROCEDURE: SPINE LUMBAR (ROUTINE) 02/12/2025 REASON FOR EXAM: SPONDYLOSIS,LUMBAR SPINE TECHNIQUE: SPINE LUMBAR (ROUTINE) COMPARISON: February 12, 2025 FINDINGS: Vertebrae: Normal vertebral body height. No abnormal signal. Alignment: Normal Conus Medullaris: Normal signal. Terminates at T12/L1. L1-2: Normal. L2-3: Normal L3-4: Moderate thickening of ligamentum flavum. Mild facet hypertrophy. L4-5: Mild loss of disc height. Mild disc desiccation. Moderate, diffuse disc bulge. Txkrgvol-xx-wottin thickening of ligamentum flavum. Tggb-lc-erzrkotj facet hypertrophy. No central stenosis. Borderline narrowing of the exit foramina. Correlate with L4 radiculopathy. L5-S1: Minimal diffuse disc bulge. Moderate facet hypertrophy. No stenosis. MRI/Spine Lumbar (Routine) IMPRESSION: Mild degenerative disc disease greatest at L4/5. Correlate with L4 radiculopat hy. Reading Location: [id number]
== END | disposition home or self-care (01) ==
LOC: MRI 15:57
PROVIDERS: PCP Nurse Practitioner Family; Referring Provider Anesthesiology; Visit Provider Anesthesiology
DX: M47.816 Spondylosis without myelopathy or radiculopathy, lumbar region (principal); M46.1 Sacroiliitis, not elsewhere classified
CPT/HCPCS: 72148